=== PATIENT | female | born 1995 | race Hispanic/Latino ===

== ENCOUNTER 2024-04-02 06:15 | Inpatient (IN) | payer OTHER ==
[2024-04-02 07:00] VITALS: BMI 30.2
[2024-04-02] MEDS ORDERED: diphenhydrAMINE 25 MG CAP PO PRN (08:53)
[2024-04-02] MEDS ORDERED: hydrALAZINE 20 MG/ML VIAL SLOW IVP PRN (08:53)
[2024-04-02] MEDS ORDERED: Simethicone Chewable 80 MG TAB PO PRN (08:53)
[2024-04-02] MEDS ORDERED: Ondansetron PF 4 MG/2 ML Vial IVP PRN ×3 (08:53→09:08)
[2024-04-02] MEDS ORDERED: Bisacodyl 10 MG SUPP PR PRN (08:53)
[2024-04-02] MEDS ORDERED: Lanolin Ointment 7 GM TUBE TOP PRN (08:53)
[2024-04-02] MEDS ORDERED: Promethazine HCl 25 MG/ML VIAL IM PRN (08:53)
[2024-04-02] MEDS ORDERED: diphenhydrAMINE 50 MG/ML VIAL IVP PRN (09:08)
[2024-04-02] MEDS ORDERED: Naloxone HCl 0.4 mg/ml Vial IV PRN (09:08)
[2024-04-02] MEDS ORDERED: Naloxone HCl 0.4 mg/ml Vial IVP PRN ×2 (09:08)
[2024-04-02] MEDS ORDERED: Moisturizing Cream (Eucerin) 113 GM JAR TOP PRN (09:08)
[2024-04-02] MEDS ORDERED: Meperidine HCl/PF 25 MG (1 mL) VIAL SLOW IVP PRN (09:08)
[2024-04-02] MEDS ORDERED: fentaNYL 50 mcg/mL 1 mL Vial SLOW IVP PRN (09:08)
[2024-04-02] MEDS ORDERED: Ketorolac Tromethamine 30 MG (1 mL) VIAL IVP PRN (09:08)
[2024-04-02] MEDS ORDERED: Ketorolac Tromethamine 30 MG (1 mL) VIAL IVP SCH (09:15)
[2024-04-02] MEDS ORDERED: Communication Order-Pharmacy FS SCH (09:15)
[2024-04-02] MEDS: Promethazine HCl 25 MG/ML VIAL IM PRN (11:23)
[2024-04-02] MEDS: Morphine PF 10 MG/10 ML VIAL ONE (12:46)
[2024-04-02] MEDS: Dexmedetomidine 200 MCG/2 ML VIAL ONE (12:46)
[2024-04-02] MEDS: Phytonadione Neonatal 1 MG/0.5 ML AMP ONE (12:46)
[2024-04-02] MEDS: Erythromycin Base 0.5% Oint 1 GM TUBE ONE (12:46)
[2024-04-02] MEDS: Ferrous Sulfate 325 MG TAB PO SCH ×2 (12:47→21:55)
[2024-04-02] MEDS: CEFAZOLIN 2 GM VIAL ONE (12:47)
[2024-04-02] MEDS: Azithromycin 500 MG VIAL ONE (12:47)
[2024-04-02] MEDS: PHENYLEPHRINE-NS 100 MCG/ML 10 ML SYRINGE ONE (12:47)
[2024-04-02] MEDS: Prenatal Vitamin 1 TAB PO SCH (12:47)
[2024-04-02] MEDS: Ondansetron PF 4 MG/2 ML Vial ONE (12:47)
[2024-04-02] MEDS: Famotidine/PF 20 mg/2ml Vial ONE (12:47)
[2024-04-02] MEDS: ePHEDrine Sulfate 50 MG/10 ML VIAL ONE (12:47)
[2024-04-02] MEDS: Oxytocin 10 UNITS/ML VIAL ONE (12:47)
[2024-04-02] MEDS: Docusate 100 MG CAP PO SCH ×2 (12:47→21:55)
[2024-04-02] MEDS: Ketorolac Tromethamine 30 MG (1 mL) VIAL IVP SCH (15:16)
[2024-04-02] MEDS ORDERED: HYDROcodone/Acetaminophen 5/325 mg Tablet PO PRN ×2 (21:15)
[2024-04-02] MEDS ORDERED: Meperidine HCl/PF 25 MG (1 mL) VIAL IM PRN (21:15)
[2024-04-03 04:11] LABS: Hematocrit 31.7 % (34.9-44.5); Hemoglobin 10.7 g/dL (12.0-15.5); Mean Corpuscular HGB CONC 33.8 g/dL (32.0-36.0); Mean Corpuscular Hemoglobin 29.6 pg (27.0-33.0); Mean Corpuscular Volume 87.8 fL (81.6-98.3); Mean Platelet Volume 9.8 fL (7.4-10.4); Platelet Count 187 10x3/uL (150-450); RBC Distribution Width 14.1 % (11.5-14.5); Red Blood Cell (RBC) Count 3.61 10x6/uL (3.90-5.03); White Blood Cell (WBC) Count 11.2 10x3/uL (3.5-10.5)
[2024-04-03] MEDS: Prenatal Vitamin 1 TAB PO SCH (09:58)
[2024-04-03] MEDS: Ibuprofen 800 MG TAB PO SCH (15:25)
[2024-04-04] MEDS: Boostrix 0.5 ML (Tdap) VIAL (>/=7 yrs of age) IM ONE (07:42)
[2024-04-04 08:15] VITALS: BP 115/64; TEMP 98.2
== END 2024-04-04 18:30 | disposition home or self-care (01) | DRG 788 ==
LOC: CSHLD 06:15 → CSHPP 12:15
PROVIDERS: ADMIT Family Medicine; ATTEND Family Medicine
PROC: 10D00Z1 Extraction of Products of Conception, Low, Open Approach (ICD-10-PCS; principal; 2024-04-02)
DX: O34.211 Maternal care for low transverse scar from previous cesarean delivery (principal); Z3A.39 39 weeks gestation of pregnancy; Z37.0 Single live birth; Z79.82 Long term (current) use of aspirin; Z79.899 Other long term (current) drug therapy
CPT/HCPCS: 36415; 51702; 85027; 93005; 93010; 99285; J1885; J2274; J2405; J2550; J2590; J3490